=== PATIENT | female | born 1940 | race Caucasian/White ===

== ENCOUNTER 2022-06-21 02:21 | Emergency (ER) | payer MEDICARE, SELFPAY ==
[2022-06-21] VITALS (8 sets, daily range): BP systolic 139–169; BP diastolic 77–87; PULSE 67–75; RESP 18; TEMP 36.8; O2SAT 96–99; BMI 17.6
--- NOTE | 2022-06-21 02:34 | ED_ITS ---
HPI - General Adult General Time Seen by Provider: 02:36 Date Seen: 06/21/22 Chief complaint: Headache/Migraine Stated complaint: Head hurt, upset stomach Time Seen by Provider: 06/21/22 02:29 Source: patient and family Mode of arrival: ambulatory Limitations: no limitations History of Present Illness HPI narrative: 81-year-old female who comes in today complaining of headache as well as nausea and vomiting. Headache for the last 4 days, left-sided shooting pain. Waxes and wanes and has been well controlled with Tylenol until overnight tonight. She denies chest pain, runny nose, sinus congestion, head injury, sore throat, vision changes. She has had nausea vomiting for the last 2 days. She saw her primary care provider for this and was diagnosed with trigeminal neuralgia, started on carbamazepine and leflunomide. Denies abdominal pain and diarrhea. Says she has been able to eat or drink for 2 days. Related Data Home Medications Medication Instructions Recorded Confirmed Tylenol 06/21/22 amlodipine 2.5 mg tablet mg 06/21/22 carbamazepine 200 mg tablet mg 06/21/22 leflunomide 10 mg tablet mg 06/21/22 levothyroxine 50 mcg tablet mcg 06/21/22 Previous Rx's Medication Instructions Recorded ondansetron 4 mg disintegrating 4 mg PO Q6H PRN nausea and 06/21/22 tablet vomiting #30 tabs oxcarbazepine 150 mg tablet 150 mg PO BID #60 tabs 06/21/22 Allergies Allergy/AdvReac Type Severity Reaction Status Date / Time No Known Drug Allergies Allergy Verified 06/21/22 02:35 Review of Systems Status of ROS: Reports: 10 or more systems reviewed and unremarkable except as noted in History and below [facility] Social History Smoking Status: Never smoker How often do you have a drink containing alcohol: never AUDIT-C Alcohol total score: 0 Non-prescribed substance use: denies use Exam Const: Vital Signs, click to edit/add: Vital Signs - 24 hr 06/21/22 02:35 06/21/22 06:15 06/21/22 03:08 Temperature 98.3 F 98.3 F Pulse Rate [Left P ulse Oximeter] 73 73 69 Respiratory Rate 18 18 18 Blood Pressure [Ri ght Upper Arm] 169/87 H 169/87 H 168/83 H Pulse Oximetry 98 98 99 Oxygen Delivery Me thod Room Air Room Air Room Air 06/21/22 03:30 06/21/22 04:00 06/21/22 04:30 Temperature Pulse Rate [Left P ulse Oximeter] 67 70 71 Respiratory Rate 18 18 18 Blood Pressure [Ri ght Upper Arm] 156/81 H 151/81 H 156/77 H Pulse Oximetry 98 98 97 Oxygen Delivery Me thod Room Air Room Air Room Air 06/21/22 05:00 06/21/22 05:30 Temperature Pulse Rate [Left P ulse Oximeter] 75 73 Respiratory Rate 18 18 Blood Pressure [Ri ght Upper Arm] 154/85 H 139/80 Pulse Oximetry 96 96 Oxygen Delivery Me thod Room Air Room Air Documenting provider has reviewed patient's vital signs: yes Common normals: no apparent distress, oriented x3, alert and well nourished HENMT: Common normals: normocephalic, head/scalp atraumatic, external ears normal and external nose normal Head and scalp: normocephalic and atraumatic Nose: external nose normal External ear: external ears normal Eye: Common normals: PERRL and conjunctivae normal Conjunctiva: conjunctiva(e) normal Pupil: PERRL Neck & C-Spine: Common normals: full ROM, no lymphadenopathy and supple Chest: Common normals: palpation of chest normal Resp: Common normals: normal respiratory effort and clear to auscultation bilaterally Auscultation: clear to auscultation bilaterally Cardio: Common normals: regular rate, regular rhythm and no murmurs Rate: regular rate Rhythm: regular rhythm GI: Common normals: Normal to inspection, nondistended, normoactive bowel sounds present, soft to palpation and non-tender Palpation: soft : Common normals: no CVA tenderness Bladder/kidney exam: no CVA tenderness Back & Pelvis: Common normals: no CVA tenderness and thoracic and lumbar spine normal to inspection Extremity: Common normals: normal to inspection, full ROM and no pedal edema Neuro: Common normals: oriented x3, CN's II-XII intact bilaterally and no focal motor deficits Sensorium/orientation: alert Psych: Common normals: mental status grossly normal Skin: Common normals: no rashes or lesions noted General skin exam: no rashes or lesions noted Course Course Hospital Course: Patient seen examined, prior records reviewed. Differential diagnosis includes but not limited to intracranial hemorrhage, intracranial mass, trigeminal neuralgia, COVID infection, electrolyte disturbance, kidney injury. Patient presents with left-sided headache along with nausea and vomiting. Vitals stable on exam, neurologically intact. No history of head injury, no history of prior similar headaches. Head CT is ordered along with labs due to reported inability to tolerate oral intake for the last 2 days. Fluids, Toradol, Zofran, and Decadron ordered for symptom management. No temporal tenderness to suggest temporal arteritis. Reevaluation(s) Reevaluation #1: Labs reassuring, CT scan is negative. Symptoms improved after medications but still little nausea and still some mild headache. Additional Zofran and Dilaudid are ordered and plan for discharge. Time: 03:44 Reevaluation #2: Headache is improved after Dilaudid, patient is having more vomiting however. Abdomen reexamined, no tenderness or distention. Compazine and Benadryl are ordered to help with symptom management. Initial nausea vomiting started a couple days after starting carbamazepine and certainly could be related to intolerance for this. We discussed switching to oxcarbazepine for better GI tolerance. Time: 05:39 Reevaluation #3: Patient is feeling better and stable for discharge. Zofran prescription sent to pharmacy. Vital Signs Vital signs: Initial Vital Signs Temperature 98.3 F 06/21/22 02:35 Temperature Source Temporal Artery Scan 06/21/22 02:35 Pulse Rate 73 06/21/22 02:35 Respiratory Rate 18 06/21/22 02:35 Blood Pressure 169/87 H 06/21/22 02:35 Blood Pressure Mean 114 06/21/22 02:35 Blood Pressure Position Supine 06/21/22 02:35 Pulse Oximetry 98 06/21/22 02:35 Oxygen Delivery Method 06/21/22 02:35 Vital Signs Temperature 98.3 F 06/21/22 02:35 Pulse Rate 73 06/21/22 02:35 Respiratory Rate 18 06/21/22 02:35 Blood Pressure 169/87 H 06/21/22 02:35 Pulse Oximetry 98 06/21/22 02:35 Oxygen Delivery Method 06/21/22 02:35 Temperature 98.3 F 06/21/22 06:15 Pulse Rate 73 06/21/22 06:15 Respiratory Rate 18 06/21/22 06:15 Blood Pressure 169/87 H 06/21/22 06:15 Pulse Oximetry 98 06/21/22 06:15 Oxygen Delivery Method 06/21/22 06:15 Medical Decision Making Medical Records Medical records reviewed: Yes I reviewed the patient's medical records Lab Data Lab results reviewed: Yes I reviewed the patient's lab results Labs: Lab Results 06/21/22 06/21/22 06/21/22 Range/Units 02:28 02:36 02:45 Sodium 133 L (135-149) mmol/L Potassium 3.6 (3.6-5.1) mmol/L Chloride 97 (96-114) mmol/L Carbon Dioxide 28 (20-32) mmol/L BUN 20 (7-30) mg/dL Creatinine 0.8 (0.5-1.5) mg/dL Estimated Creat Clear 32.35 Estimated GFR 73 ml/min Glucose 103 (60-115) mg/dL Calcium 8.5 (8.4-10.6) mg/dL SARS-CoV-2 (PCR) Cancelled Negative SARS-CoV-2 Influenza Type A (PCR) Negative PCR FLU A (Negative) Influenza Type B (PCR) Negative PCR FLU B (Negative) Imaging Data CT scan - head: Attestation: I have reviewed the pertinent imaging results. My impression: negative Radiologist's impression: Negative Discharge Plan Discharge Clinical Impression: Headache Patient Disposition: Home, Self-Care Condition: Improved Instructions: Acute Headache (DC) Additional Instructions: Your nausea and vomiting today may be related to the carbamazepine it was started this week. You may continue at the twice a day dose that your taking, or you may stop this and switch to oxcarbazepine which is better tolerated by some patients. A prescription has been sent to your pharmacy. Do not take both of these medications at the same time. Activity Level: No Restrictions Discharge Diet: Regular Prescriptions: New ondansetron 4 mg tablet,disintegrating 4 mg PO Q6H PRN (Reason: nausea and vomiting) Qty: 30 0RF oxcarbazepine 150 mg tablet 150 mg PO BID Qty: 60 2RF Rx Instructions: Start with 1 tablet twice a day, after 3 days you can increase to 2 tablets twice a day. If your tolerating that dose and still having headache, after 3 more days you can increase to 3 tablets twice a day. No Action leflunomide 10 mg tablet Label Comments: TAKE 1 TABLET BY MOUTH EVERY DAY amlodipine 2.5 mg tablet Label Comments: TAKE ONE TABLET BY MOUTH ONCE DAILY carbamazepine 200 mg tablet Label Comments: TAKE 1 TABLET (200 MG) BY MOUTH IN THE MORNING AND 1 TABLET (200 MG) IN THE EVENING. levothyroxine 50 mcg tablet Label Comments: TAKE ONE TABLET BY MOUTH DAILY Tylenol Follow Up/Referrals: Nikki Liz MD [Primary Care Provider] - [facility]
--- NOTE | 2022-06-21 02:40 | CRLHL7_ITS ---
For Patients: As a result of the Century Cures Act, medical imaging exams and procedure reports are released immediately into your electronic medical record. You may view this report before your referring provider. If you have questions, please contact your health care provider. INDICATION: Migraine TECHNIQUE: CT Head without i.v. contrast. Coronal and sagittal reformats were obtained. COMPARISON: None FINDINGS: CSF space: Unremarkable for age. Brain: No evidence of mass, acute infarction or hemorrhage is seen. No mass-effect or midline shift is seen. Mild diffuse cortical atrophy is noted. The brain parenchyma is otherwise normal in appearance with preservation of the conway-white matter junction. Calvarium: There is a soft tissue structure with scattered calcifications partially visualized within the right sphenoid sinus with associated osteitis. The mastoid air cells are clear. The visualized orbits are grossly unremarkable. The calvarium is unremarkable in appearance with no fractures identified. IMPRESSIONS: 1. No evidence of acute infarction, intracranial hemorrhage, or mass-effect seen. 2. There is a soft tissue structure with scattered calcifications partially visualized within the right sphenoid sinus with associated osteitis. Assessment with outpatient CT sinus is recommended. Dictated by Christopher Juarez MD @ 06/21/2022 3:21:26 AM Please note that all CT scans at this facility use dose modulation, iterative reconstruction, and/or weight-based dosing when appropriate to reduce radiation dose to as low as reasonably achievable. Dictated by: Christopher Juarez MD @ 06/21/2022 03:21:44 (Electronically Signed)
[2022-06-21] MEDS: ONDANSETRON 2 MG/ML inj 4 MG IVP ×2 (02:51→04:22)
[2022-06-21] MEDS: 0.9 % SODIUM CHLORIDE 1000 ml 1,000 ML IV (02:51)
[2022-06-21] MEDS: KETOROLAC 15 MG/ML inj IVP (02:53)
[2022-06-21] MEDS: dexAMETHasone 4 MG/ML VIAL 6 MG IV (02:57)
[2022-06-21 03:12] LABS: Chloride* 97 mmol/L (96-114); Potassium* 3.6 mmol/L (3.6-5.1); Sodium* 133 mmol/L (135-149)
[2022-06-21 03:14] LABS: PCR FLU A Negative PCR FLU A (Negative); PCR FLU B Negative PCR FLU B (Negative); SARS PCR* Negative SARS-CoV-2 (Negative)
[2022-06-21 03:15] LABS: Blood Urea Nitrogen* 20 mg/dL (7-30); Carbon Dioxide* 28 mmol/L (20-32); Creatinine* 0.8 mg/dL (0.5-1.5); Est. Creatinine Clearance* 32.35; Estimated Glomerular Filt Rate 73 ml/min
[2022-06-21 03:16] LABS: Calcium* 8.5 mg/dL (8.4-10.6); Glucose* 103 mg/dL (60-115)
[2022-06-21] MEDS: HYDROmorphone 0.5 mg/0.5 ml inj 0.3 MG IVP (04:22)
[2022-06-21] MEDS: PROCHLORPERAZINE 5 MG/ML VIAL IV (05:47)
[2022-06-21] MEDS: diphenhydrAMINE 50 MG/ML inj 12.5 MG IVP (05:47)
== END 2022-06-21 06:45 | disposition home or self-care (01) ==
PROVIDERS: Emergency Provider Family Medicine; PCP Family Medicine
DX: R51.9 Headache, unspecified (principal)
CPT/HCPCS: 36415; 70450; 80048; 87502; 87635; 96361; 96374; 96375; 96376; 99284; J0780; J1100; J1170; J1200; J1885; J2405; J7030

== ENCOUNTER 2022-06-25 08:02 | Emergency (ER) | payer MEDICARE, SELFPAY ==
[2022-06-25 08:07] VITALS: BP 165/82; PULSE 85; RESP 16; TEMP 35.7; O2SAT 99; BMI 17.6
--- NOTE | 2022-06-25 08:46 | ED_ITS ---
HPI - General Adult General Time Seen by Provider: 08:46 Date Seen: 06/25/22 Chief complaint: Headache/Migraine Stated complaint: headache/nausea/unable to eat for 2 days Time Seen by Provider: 06/25/22 08:41 Source: patient and RN notes reviewed Mode of arrival: ambulatory Limitations: no limitations History of Present Illness HPI narrative: This 81-year-old female is coming in an with the stated diagnosis of trigeminal neuralgia, ongoing headache with paroxysm is a pain and severe nausea. She was on carbamazepine of initially and had presumed nausea vomiting from that. She was switched to oxcarbazepine a few days ago when she was in the ER, did have a head CT which was negative. She is not eating or drinking per her . The trigeminal neuralgia was diagnosed roughly 2-3 weeks ago in clinic. She also states she has fibromyalgia and was diagnosed with rheumatoid arthritis in March of this year. She states she was fine up until then. Her rheumatoid arthritis is doing better. She has had her left knee drained and injected twice. She does follow with rheumatology. She has had no fevers. She is starting to get some symptoms on the right side of her head. She points to the left occiput and the right occiput. She is getting pain generalized in forehead, into the head and getting overall headache in the front. She also gets sharp shooting pains. They have a lancinating character and I watched her 2 or 3 different times just talking to her where she got a Zinger type pain going to her left head. No visual changes, no otherwise noted neurologic changes. No fevers or chills noted. Eating does not trigger symptoms. She states she cannot eat due to the nausea. She has tried ice in the past and it made it worse. Reviewed with her that the literature suggests moist heat, we will try that for her here. She last used Tylenol around 3:00 a.m., is due for ibuprofen and would like some. She has been alternating Tylenol and ibuprofen as well as trying other meds outlined. She states that she cannot even lay on the back of her head anymore as it is becoming so painful and she feels it is stimulating these zinging pains. Related Data Home Medications Medication Instructions Recorded Confirmed Tylenol 06/21/22 amlodipine 2.5 mg tablet 2.5 mg 06/21/22 carbamazepine 200 mg tablet mg 06/21/22 leflunomide 10 mg tablet 10 mg 06/21/22 levothyroxine 50 mcg tablet 50 mcg 06/21/22 Previous Rx's Medication Instructions Recorded ondansetron 4 mg disintegrating 4 mg PO Q6H PRN nausea and 06/21/22 tablet vomiting #30 tabs oxcarbazepine 150 mg tablet 150 mg PO BID #60 tabs 06/21/22 prednisone 20 mg tablet 20 mg PO BID #14 tabs 06/25/22 prochlorperazine maleate 5 mg 5 mg PO TID PRN #30 tabs 06/25/22 tablet (Compazine) Allergies Allergy/AdvReac Type Severity Reaction Status Date / Time iodine Allergy Mild violentlly Verified 06/25/22 08:18 ill to stomach Review of Systems Status of ROS: Reports: 10 or more systems reviewed and unremarkable except as noted in History and below [facility] Medical History (Updated 06/25/22 @ 13:58 by Josselin Jackson MD) Rheumatoid arteritis Trigeminal nerve disorder, unspecified Social History Smoking Status: Never smoker Do you use any of these nicotine containing products: None Second hand tobacco smoke exposure: No How often do you have a drink containing alcohol: never How often do you have six or more drinks on one occasion: Never AUDIT-C Alcohol total score: 0 Non-prescribed substance use: denies use Exam Const: Vital Signs, click to edit/add: Vital Signs - 24 hr 06/25/22 08:07 Temperature 96.2 F L Pulse Rate [Right Pulse Oximeter] 85 Respiratory Rate 16 Blood Pressure [Ri ght Upper Arm] 165/82 H Pulse Oximetry 99 Oxygen Delivery Me thod Room Air Documenting provider has reviewed patient's vital signs: yes Common normals: oriented x3, no limitations, healthy appearing, alert and well nourished General appearance: cooperative, well kempt, in distress (Intermittent significant pain, grabbing at her left head) and frail appearing Nutritional appearance: thin HENMT: Common normals: normocephalic, head/scalp atraumatic, hearing grossly normal bilaterally, external ears normal, EAC's normal, TM's normal bilaterally, external nose normal, nasal mucous membranes and turbinates normal, moist oral mucous membranes, oropharynx normal, dentition normal and gingiva normal Head and scalp: normocephalic and atraumatic Nose: external nose normal and nasal mucous membranes and turbinates normal External ear: external ears normal External auditory canal: EAC's normal Tympanic membrane: TM's normal bilaterally Eye: Common normals: PERRL, EOMs intact bilaterally, conjunctivae normal and no scleral icterus Conjunctiva: conjunctiva(e) normal Pupil: PERRL Neck & C-Spine: Common normals: full ROM, no lymphadenopathy, supple, no meningeal signs, no JVD and thyroid normal Thyroid: thyroid normal Resp: Common normals: normal respiratory effort, no retractions, no use of accessory muscles and clear to auscultation bilaterally Auscultation: clear to auscultation bilaterally Cardio: Common normals: no JVD, regular rate, regular rhythm, S1 normal heart sound, S2 normal heart sound, no gallops, no clicks and no murmurs Rate: regular rate Rhythm: regular rhythm Heart sounds: S1 normal and S2 normal GI: Common normals: Normal to inspection, nondistended, normoactive bowel sounds present, soft to palpation, non-tender, no hepatosplenomegaly, no masses and no bruits Palpation: soft and no hepatosplenomegaly Extremity: Common normals: normal to inspection, full ROM, normal capillary refill, no joint enlargement, no clubbing, cyanosis or edema, no calf tenderness and no pedal edema Neuro: Common normals: oriented x3, CN's II-XII intact bilaterally, moves all extremities, no focal motor deficits, no sensory deficits noted and gait normal Sensorium/orientation: alert Meningeal signs: no meningeal signs Speech: speech normal Psych: Appearance: well kempt Course Course Hospital Course: Will establish an IV, give her L of normal saline and 4 mg IV Zofran. I will get some baseline labs. Have discussed with her trying an occipital nerve block, did go over risks benefits and side effects. She understands that may or may not work. It may help provide relief. They can be considered both diagnostic and therapeutic. Reevaluation(s) Reevaluation #1: Patient actually is feeling better. Since she has completed the trigger point injection along the left occiput, she has only had 1 sharp pain. The headache overall is improved. Her nausea did improve with use of the Compazine. Rather than initiating gabapentin, I think lets just have her do the prednisone. She did improve on that before and does not have ill effects of nausea. She and her are in agreement. Since starting the antiseizure medicines, she is had significant nausea that absolutely worsens after taking the medicine. She has also had a metallic taste in her mouth since starting it. We reviewed that hopefully the symptoms will start to improve over the next week. It could be less than a week or could take a little longer. They have a follow-up appointment with her Primary on this which they are to keep. We have reviewed that her CT of her sinuses is showing chronic changes, this does not contribute to her current situation from what I can see. Time: 13:52 Consultations Consultation #1: Just got off the phone with patient's primary care provider Dr. Liz, she had actually called me to talk regarding this patient. She was worried about this calcified lesion seen in the patient's right sinus. We did review that patient's symptoms really are primarily on the left and she is having no right- sided sinus symptoms. She did ask if I would consider doing this is sinus CT just to ensure that there was no complicating component with that. I did agree to do so. We also discussed maybe initiating gabapentin 100 mg nightly. Brianna ent's Arava was started by rheumatology and Dr. Liz does wonder if it could be a contributing factor. She has spoken with the chair car attendant however and they do not feel that this is contributing. I reviewed with her that I was going to attempt an injection over the left occiput for diagnostic and therapeutic considerations. She also requested that I initiate a longer steroid taper. She asked that we consider hospitalization if patient is not improving with these treatments, did review with her that hospitalization is extremely difficult right now as beds are significantly hard to find. Time: 09:36 Vital Signs Vital signs: Initial Vital Signs Temperature 96.2 F L 06/25/22 08:07 Temperature Source Temporal Artery Scan 06/25/22 08:07 Pulse Rate 85 06/25/22 08:07 Pulse Rhythm 06/25/22 08:07 Respiratory Rate 16 06/25/22 08:07 Blood Pressure 165/82 H 06/25/22 08:07 Blood Pressure Mean 109 06/25/22 08:07 Blood Pressure Position Sitting 06/25/22 08:07 Pulse Oximetry 99 08/23/22 08:07 Oxygen Delivery Method 06/25/22 08:07 Vital Signs Temperature 96.2 F L 06/25/22 08:07 Pulse Rate 85 06/25/22 08:07 Respiratory Rate 16 06/25/22 08:07 Blood Pressure 165/82 H 06/25/22 08:07 Pulse Oximetry 99 06/25/22 08:07 Oxygen Delivery Method 06/25/22 08:07 Temperature 96.2 F L 06/25/22 08:07 Pulse Rate 85 06/25/22 08:07 Respiratory Rate 16 06/25/22 08:07 Blood Pressure 165/82 H 06/25/22 08:07 Pulse Oximetry 99 06/25/22 08:07 Oxygen Delivery Method 06/25/22 08:07 Medical Decision Making Lab Data Lab results reviewed: Yes I reviewed the patient's lab results Labs: Lab Results 06/25/22 06/25/22 06/25/22 Range/Units 09:30 09:30 10:24 WBC 6.52 (4.50-11.00) K/uL RBC 4.75 (4.00-5.20) m/uL Hgb 13.9 (12.0-16.0) gm/dL Hct 42.0 (33.0-51.0) % MCV 88 (80-100) fL MCH 29 (26-34) pg MCHC 33 (32-36) gm/dL RDW Coeff of Tono 15.0 (11.5-15.5) % Plt Count 246 (140-440) K/uL Neut % (Auto) 79.0 H (42.0-72.0) % Lymph % (Auto) 10.1 L (20-44) % Thayer % (Auto) 9.5 (0.0-11.0) % Eos % (Auto) 0.9 (0.0-7.0) % Baso % (Auto) 0.3 (0.0-3.0) % Neut # (Auto) 5.20 (1.7-7.0) K/uL Lymph # (Auto) 0.70 L (0.90-2.90) K/uL Thayer # (Auto) 0.60 (0.00-0.90) K/UL Eos # (Auto) 0.06 (0.00-0.50) K/uL Baso # (Auto) 0.02 (0.00-0.30) K/uL Abs Immat Gran (auto) 0.01 (0.00-0.30) K/uL ESR 28 H (2-20) mm/hr Sodium 136 (135-149) mmol/L Potassium 3.4 L (3.6-5.1) mmol/L Chloride 98 (96-114) mmol/L Carbon Dioxide 28 (20-32) mmol/L BUN 15 (7-30) mg/dL Creatinine 0.7 (0.5-1.5) mg/dL Estimated Creat Clear 32.35 Estimated GFR 86 ml/min Glucose 89 (60-115) mg/dL Calcium 8.5 (8.4-10.6) mg/dL Total Bilirubin 0.7 (0.1-1.5) mg/dL AST 29 (12-35) U/L ALT 26 (4-35) U/L Alkaline Phosphatase 64 (40-150) U/L C-Reactive Protein 5.0 H (0.5-1.0) mg/dL Total Protein 7.3 (6.0-8.3) g/dL Albumin 3.8 (3.3-5.0) g/dL Imaging Data CT- Other: Attestation: I have reviewed the pertinent imaging results. Radiologist's impression: INDICATION: HEADACHE, NAUSEA, VOMITING TECHNIQUE: CT sinus without contrast. COMPARISON: CT head June 21, 2022. FINDINGS: Paranasal sinuses: Severe mucosal sinus thickening and mucosal retention cyst within the right maxillary sinus. There is scattered calcifications within the paranasal thickening as well as chronic periosteal thickening of the maxillary sinus wall. The other paranasal sinuses are predominantly clear. No air-fluid level is seen. The right ostiomeatal unit is partially opacified but patent. Patent left ostiomeatal unit. The fovea ethmoidalis and orbital moreno are intact. The nasal septum is slightly deviated to the right. The nasal turbinates are normal. Orbits and globes: Unremarkable. Visualized intracranial contents: Unremarkable.? Soft tissues: Small hypodense left frontal cystic structure likely epidermoid cyst or sebaceous cyst.. IMPRESSION: Chronic near-complete opacification of the right maxillary sinus with periosteal thickening in the maxillary sinus wall. There is intra sinus scattered calcifications likely related to intubated secretions and/or chronic fungal colonization. The right ostiomeatal unit is partially opacified but patent. No air-fluid level to suggest acute sinusitis. The additional paranasal sinuses are predominantly clear. Please note that all CT scans at this facility use dose modulation, iterative reconstruction, and/or weight-based dosing when appropriate to reduce radiation dose to as low as reasonably achievable. Dictated by Yoshi Zamarripa MD @ 06/25/2022 11:07:55 AM (Electronically Signed) Critical Care Time Critical Care Time Critical Care Time: No Discharge Plan Discharge Clinical Impression: Occipital neuralgia, Headache, Drug-induced nausea and vomiting Condition: Stable Instructions: Trigeminal Neuralgia (ED), Acute Headache (ED) Additional Instructions: Do not take the carbamazepine or the oxcarbazepine. We will have you start prednisone, take as prescribed and take with food. You can try Compazine for nausea control. You do need to try to increase your fluid intake and advance your diet back to some regular food. Eat food that is palatable for you. Keep your follow-up appointment in clinic this coming . Should you have worsening of symptoms, develop further issues or concerns, you can always seek re-evaluation here. Would recommend neurology referral for your current issues, talk to your primary care provider regarding this. Try heat to the back of your head, not ice. Handout is given on trigeminal neuralgia as we do not have a specific handout on occipital neuralgia. There are similar conditions in the fact that they are nerve problems with pain. Activity Level: Activity as Tolerated Prescriptions: New prednisone 20 mg tablet 20 mg PO BID Qty: 14 0RF prochlorperazine maleate [Compazine] 5 mg tablet 5 mg PO TID PRNQty: 30 0RF No Action leflunomide 10 mg tablet 10 mg Label Comments: TAKE 1 TABLET BY MOUTH EVERY DAY amlodipine 2.5 mg tablet 2.5 mg Label Comments: TAKE ONE TABLET BY MOUTH ONCE DAILY carbamazepine 200 mg tablet Label Comments: TAKE 1 TABLET (200 MG) BY MOUTH IN THE MORNING AND 1 TABLET (200 MG) IN THE EVENING. levothyroxine 50 mcg tablet 50 mcg Label Comments: TAKE ONE TABLET BY MOUTH DAILY Tylenol ondansetron 4 mg tablet,disintegrating 4 mg PO Q6H PRN (Reason: nausea and vomiting) Qty: 30 0RF oxcarbazepine 150 mg tablet 150 mg PO BID Qty: 60 2RF Rx Instructions: Start with 1 tablet twice a day, after 3 days you can increase to 2 tablets twice a day. If your tolerating that dose and still having headache, after 3 more days you can increase to 3 tablets twice a day. Follow Up/Referrals: Nikki Liz MD [Primary Care Provider] - Stand Alone Forms: [facility] Info Instructions Procedures Additional Procedures Procedure name: Trigger point injection, left occipital area Pre procedure diagnosis: Left occipital pain, probable occipital neuralgia Post procedure diagnosis: Same Site marking: not applicable Verification/time out: correct patient, correct site, correct procedure and time out performed Estimated blood loss (if any): none Conclusion: patient tolerated procedure Additional comments: Trigger point over the patient's left occipital area at point of maximal tenderness was done. I did do it in 2 steps. My initial 1 was at 9:55 a.m. with 3 mL of a total volume of 6 mL with 1% lidocaine (5 mL) and 4 mg dexamethasone (1 mL). She did get some initial relief. On my initial injection IA do note that they had good source of pain as I was able to palpate in trigger some of the lancinating pain along the left occipital area. We did subsequently found out in place the subsequent 3 mL just around 11:00 p.m.. Thus total volume infused was 6 mL. We will see how she does with this. There were no immediate complications and patient tolerated this well.
[2022-06-25] MEDS: ONDANSETRON 2 MG/ML inj 4 MG IVP (09:34)
--- NOTE | 2022-06-25 09:34 | CRLHL7_ITS ---
For Patients: As a result of the Century Cures Act, medical imaging exams and procedure reports are released immediately into your electronic medical record. You may view this report before your referring provider. If you have questions, please contact your health care provider. INDICATION: HEADACHE, NAUSEA, VOMITING TECHNIQUE: CT sinus without contrast. COMPARISON: CT head June 21, 2022. FINDINGS: Paranasal sinuses: Severe mucosal sinus thickening and mucosal retention cyst within the right maxillary sinus. There is scattered calcifications within the paranasal thickening as well as chronic periosteal thickening of the maxillary sinus wall. The other paranasal sinuses are predominantly clear. No air-fluid level is seen. The right ostiomeatal unit is partially opacified but patent. Patent left ostiomeatal unit. The fovea ethmoidalis and orbital moreno are intact. The nasal septum is slightly deviated to the right. The nasal turbinates are normal. Orbits and globes: Unremarkable. Visualized intracranial contents: Unremarkable. Soft tissues: Small hypodense left frontal cystic structure likely epidermoid cyst or sebaceous cyst.. IMPRESSION: Chronic near-complete opacification of the right maxillary sinus with periosteal thickening in the maxillary sinus wall. There is intra sinus scattered calcifications likely related to intubated secretions and/or chronic fungal colonization. The right ostiomeatal unit is partially opacified but patent. No air-fluid level to suggest acute sinusitis. The additional paranasal sinuses are predominantly clear. Please note that all CT scans at this facility use dose modulation, iterative reconstruction, and/or weight-based dosing when appropriate to reduce radiation dose to as low as reasonably achievable. Dictated by Yoshi Zamarripa MD @ 06/25/2022 11:07:55 AM (Electronically Signed)
[2022-06-25] MEDS: 0.9 % SODIUM CHLORIDE 1000 ml 1,000 ML 500 ML IV (09:35)
[2022-06-25 09:47] LABS: Basophils Absolute Auto 0.02 K/uL (0.00-0.30); Basophils Percent Auto 0.3 % (0.0-3.0); Eosinophils Absolute Auto 0.06 K/uL (0.00-0.50); Eosinophils Percent Auto 0.9 % (0.0-7.0); Hemoglobin* 13.9 gm/dL (12.0-16.0); Immature Granulocytes Abs Auto 0.01 K/uL (0.00-0.30); Lymphocytes Percent Auto 10.1 % (20-44); Mean Corpuscular HGB Conc 33 gm/dL (32-36); Mean Corpuscular Hemoglobin 29 pg (26-34); Mean Corpuscular Volume 88 fL (80-100); Monocytes Percent Auto 9.5 % (0.0-11.0); Platelet Count* 246 K/uL (140-440); Red Blood Count 4.75 m/uL (4.00-5.20); White Blood Count* 6.52 K/uL (4.50-11.00)
[2022-06-25] MEDS: IBUPROFEN 200 MG TABLET 600 MG PO (09:50)
[2022-06-25] MEDS: LIDOCAINE 1% 5 ml (pf) 5 ML VIAL INJECTION (09:50)
[2022-06-25] MEDS: dexAMETHasone 4 MG/ML VIAL IM (09:51)
[2022-06-25 10:06] LABS: Slide Review Reflex No
--- NOTE | 2022-06-25 10:53 | ED.NURSE ---
patient felt had some improvement with the injection into the neck that Dr. Frank did. patient is hungry given some crackers to eat and sipping on water.
[2022-06-25 10:57] LABS: Chloride* 98 mmol/L (96-114)
[2022-06-25 10:58] LABS: Albumin* 3.8 g/dL (3.3-5.0); Potassium* 3.4 mmol/L (3.6-5.1); Sodium* 136 mmol/L (135-149)
[2022-06-25 11:00] LABS: Creatinine* 0.7 mg/dL (0.5-1.5); Est. Creatinine Clearance* 32.35; Estimated Glomerular Filt Rate 86 ml/min
[2022-06-25 11:00] LABS: Erythrocyte SedimentationRate* 28 mm/hr (2-20)
[2022-06-25 11:01] LABS: Alanine Aminotransferase* 26 U/L (4-35); Alkaline Phosphatase* 64 U/L (40-150); Aspartate Amino Transferase* 29 U/L (12-35); Bilirubin Total* 0.7 mg/dL (0.1-1.5); Blood Urea Nitrogen* 15 mg/dL (7-30); Calcium* 8.5 mg/dL (8.4-10.6); Carbon Dioxide* 28 mmol/L (20-32); Glucose* 89 mg/dL (60-115); Total Protein* 7.3 g/dL (6.0-8.3)
[2022-06-25] MEDS: PROCHLORPERAZINE 10 MG TABLET 5 MG PO (12:36)
--- NOTE | 2022-06-25 13:51 | ED.NURSE ---
Dr. Frank is in talking with patient.
== END 2022-06-25 14:35 | disposition home or self-care (01) ==
PROVIDERS: Emergency Provider Family Medicine; PCP Family Medicine
DX: M54.81 Occipital neuralgia (principal); R51.9 Headache, unspecified; T50.905A Adverse effect of unspecified drugs, medicaments and biological substances, initial encounter
CPT/HCPCS: 36415; 70486; 80053; 85025; 85651; 86140; 96372; 96374; 96375; 99284; 99285; A9270; J1100; J2405; J7030

== ENCOUNTER 2022-09-15 08:51 | Outpatient (CLI) | payer MEDICARE, SELFPAY | END 2022-09-15 08:52 | disposition home or self-care (01) | LOC: AMB 10-11 03:14 | PROVIDERS: PCP Family Medicine; Visit Provider Emergency Medicine Emergency Medical Services | DX: R55 Syncope and collapse (principal); S09.90XA Unspecified injury of head, initial encounter; W17.89XA Other fall from one level to another, initial encounter; Y92.000 Kitchen of unspecified non-institutional (private) residence as the place of occurrence of the external cause | CPT/HCPCS: A0425; A0427 ==

== ENCOUNTER 2022-09-15 09:17 | Emergency (ER) | payer MEDICARE, SELFPAY ==
[2022-09-15] VITALS (13 sets, daily range): BP systolic 133–158; BP diastolic 69–78; PULSE 63–69; RESP 16; TEMP 36.7; O2SAT 96–98; BMI 18.1
--- NOTE | 2022-09-15 09:22 | CRLHL7_ITS ---
For Patients: As a result of the Century Cures Act, medical imaging exams and procedure reports are released immediately into your electronic medical record. You may view this report before your referring provider. If you have questions, please contact your health care provider. INDICATION: Fall. TECHNIQUE: CT head without IV contrast. Coronal and sagittal reformats. COMPARISON: Head CT 06/1922. FINDINGS: No intracranial hemorrhage, extra-axial collection, or evidence of acute cortical infarct. Age-appropriate ventricles and sulci. No mass effect or midline shift. The cranium and orbits are intact. Right maxillary sinus is near completely opacified with mixed density contents and bony hyperostosis. Left maxillary sinus demonstrates an air-fluid level. The mastoid air cells are clear. IMPRESSION: 1. No acute intracranial findings. 2. Right maxillary chronic sinusitis. 3. Left maxillary sinus nonspecific air-fluid level. Dictated by Young Doyle MD @ 09/15/2022 9:53:07 AM Please note that all CT scans at this facility use dose modulation, iterative reconstruction, and/or weight-based dosing when appropriate to reduce radiation dose to as low as reasonably achievable. Dictated by: Young Doyle MD @ 09/15/2022 09:53:12 (Electronically Signed)
--- NOTE | 2022-09-15 09:22 | CRLHL7_ITS ---
For Patients: As a result of the Cures Act, medical imaging exams and procedure reports are released immediately into your electronic medical record. You may view this report before your referring provider. If you have questions, please contact your health care provider. Indication: Fall Technique: Frontal AP pelvic radiograph Comparison: None available Findings: Diffuse demineralization. No dislocation or displaced fracture. Evaluation of the sacrum is partially obscured by overlying bowel contents. The hip joint spaces appear maintained bilaterally. The pubic symphysis and sacroiliac joints are intact. Impression: Diffuse demineralization without dislocation or displaced fracture. Dictated by Young Doyle MD @ 09/15/2022 9:54:15 AM Dictated by: Young Doyle MD @ 09/15/2022 09:54:21 (Electronically Signed)
--- NOTE | 2022-09-15 09:24 | ED.GENADULT ---
HPI - General Adult General Chief complaint: Fall/Minor Trauma Stated complaint: Fall Time Seen by Provider: 09/15/22 09:18 History of Present Illness HPI narrative: This 81-year-old female comes in by ambulance because of a fall with loss of consciousness at occurred at home prior to arrival here. She lives at home with her . She does not know what happened as she had loss of consciousness. She does have a linear laceration about 2 cm long on right parietal region of her scalp. She does not report any other injury except some discomfort in her sacrum region. She does not report a headache. She does not have any neurologic deficits. She is not on any anticoagulants. Related Data Home Medications Medication Instructions Recorded Confirmed Tylenol 06/21/22 amlodipine 2.5 mg tablet 2.5 mg PO 06/21/22 carbamazepine 200 mg tablet mg 06/21/22 leflunomide 10 mg tablet 10 mg 06/21/22 levothyroxine 50 mcg tablet 50 mcg PO 06/21/22 azathioprine 50 mg tablet mg 09/15/22 hydroxychloroquine 200 mg tablet mg PO 09/15/22 Previous Rx's Medication Instructions Recorded ondansetron 4 mg disintegrating 4 mg PO Q6H PRN nausea and 06/21/22 tablet vomiting #30 tabs oxcarbazepine 150 mg tablet 150 mg PO BID #60 tabs 06/21/22 prednisone 20 mg tablet 20 mg PO BID #14 tabs 06/25/22 prochlorperazine maleate 5 mg 5 mg PO TID PRN #30 tabs 06/25/22 tablet (Compazine) Allergies Allergy/AdvReac Type Severity Reaction Status Date / Time iodine Allergy Mild violentlly Verified 06/25/22 08:18 ill to stomach carbamazepine Allergy Verified 09/15/22 09:39 shellfish derived Allergy Verified 09/15/22 09:39 witch coleman Allergy Verified 09/15/22 09:39 Review of Systems Status of ROS: Reports: 10 or more systems reviewed and unremarkable except as noted in History and below Narrative: Constitutional: No fevers, no weight gain or loss. Eyes: No discharge. No vision changes. HENT: No congestion, no sore throat, no ear pain. Cardiovascular: No chest pain, no palpitations. Respiratory: No shortness of breath, no wheezes, no cough. Gastrointestinal: No abdominal pain, no vomiting, no diarrhea. Genitourinary: No dysuria, no hematuria. Musculoskeletal: Normal range of motion. Skin: No rashes, no pruritis. Neurological: No dizziness, weakness, sensory change, speech change. Endo/Heme/Allergies: No bruising or bleeding. No polydipsia. Pysch: no suicidality, no anxiety, no insomnia. All other systems reviewed and are negative. [facility] Medical History (Updated 09/15/22 @ 10:40 by Binh Schultz MD) Rheumatoid arteritis Trigeminal nerve disorder, unspecified Social History Smoking Status: Never smoker Do you use any of these nicotine containing products: None Second hand tobacco smoke exposure: No How often do you have a drink containing alcohol: never How often do you have six or more drinks on one occasion: Never AUDIT-C Alcohol total score: 0 Non-prescribed substance use: denies use service: No Exam Narrative: Exam Narrative: Primary Survey: Vital Signs are within normal limits. Airway: Open. Breathing: Easy. Circulation: no obvious bleeding; normal capillary refill. Disability: GCS is 15. Normal pupillary response and motor movements. Secondary Survey: Exposure: Head: 2 cm linear laceration in the right parietal scalp. Neck: No midline tenderness. ROM intact. Chest: Non tender. No external signs of trauma. Abdomen: Non tender. No rebound tenderness. Normal bowel sounds. Pelvis/Genitals: No tenderness to A/P and lateral stress. Tenderness when palpating at the sacrum. Extremities: Atraumatic. Back: No midline tenderness except for tenderness at the sacrum/coccyx. No sign of injury. Primary and Secondary surveys are completed. The patient's GCS is 15. Const: Vital Signs, click to edit/add: Vital Signs - 24 hr 09/15/22 09:29 09/15/22 09:48 09/15/22 09:49 Temperature 98.0 F Pulse Rate 64 64 Pulse Rate [Left P ulse Oximeter] 69 Respiratory Rate 16 Blood Pressure 158/78 H Blood Pressure [Ri ght Upper Arm] 144/71 H Pulse Oximetry 98 97 98 Oxygen Delivery Me thod Room Air 09/15/22 09:54 09/15/22 10:00 09/15/22 10:04 Temperature Pulse Rate 63 64 65 Pulse Rate [Left P ulse Oximeter] Respiratory Rate Blood Pressure 145/73 H 138/70 Blood Pressure [Ri ght Upper Arm] Pulse Oximetry 98 97 96 Oxygen Delivery Me thod 09/15/22 10:14 09/15/22 10:15 09/15/22 10:24 Temperature Pulse Rate 65 65 68 Pulse Rate [Left P ulse Oximeter] Respiratory Rate Blood Pressure 140/69 H 136/70 Blood Pressure [Ri ght Upper Arm] Pulse Oximetry 97 96 98 Oxygen Delivery Me thod 09/15/22 10:30 Temperature Pulse Rate 66 Pulse Rate [Left P ulse Oximeter] Respiratory Rate Blood Pressure Blood Pressure [Ri ght Upper Arm] Pulse Oximetry 96 Oxygen Delivery Me thod Course Vital Signs Vital signs: Initial Vital Signs Temperature 98.0 F 09/15/22 09:29 Temperature Source Temporal Artery Scan 09/15/22 09:29 Pulse Rate 69 09/15/22 09:29 Pulse Rhythm 09/15/22 09:29 Pulse Strength 3+ Normal 09/15/22 09:29 Respiratory Rate 16 09/15/22 09:29 Blood Pressure 144/71 H 09/15/22 09:29 Blood Pressure Mean 95 09/15/22 09:29 Blood Pressure Position Sitting 09/15/22 09:29 Pulse Oximetry 98 09/15/22 09:29 Oxygen Delivery Method 09/15/22 09:29 Vital Signs Temperature 98.0 F 09/15/22 09:29 Pulse Rate 69 09/15/22 09:29 Respiratory Rate 16 09/15/22 09:29 Blood Pressure 144/71 H 09/15/22 09:29 Pulse Oximetry 98 09/15/22 09:29 Oxygen Delivery Method 09/15/22 09:29 Temperature 98.0 F 09/15/22 09:29 Pulse Rate 66 09/15/22 10:30 Respiratory Rate 16 09/15/22 09:29 Blood Pressure 136/70 09/15/22 10:24 Pulse Oximetry 96 09/15/22 10:30 Oxygen Delivery Method 09/15/22 09:29 Medical Decision Making MDM Narrative Medical decision making narrative: This patient comes in for evaluation due to a fall that occurred at home. She had loss of consciousness and does not remember what precipitated the fall. Her was sitting at the kitchen table but did not see how this happened. He did note that she was laying on the floor next to the table but was unaware of what brought to that position. She is not reporting any symptoms of discomfort except some mild discomfort in her sacral region. X-ray of the pelvis appears normal. CT of the head also shows no sign of acute intracranial changes. Lab results also returned with normal findings. She has a 2 cm linear laceration on the right side of her scalp. This wound was cleansed and repaired with Dermabond. Instructions regarding wound care were given. The patient was able to get up and ambulate normally to the bathroom. She is okay to be discharged. Lab Data Labs: Lab Results 09/15/22 Range/Units 09:58 Sodium 133 L (135-149) mmol/L Potassium 3.6 (3.6-5.1) mmol/L Chloride 101 (96-114) mmol/L Carbon Dioxide 29 (20-32) mmol/L BUN 25 (7-30) mg/dL Creatinine 0.8 (0.5-1.5) mg/dL Estimated Creat Clear 29.30 Estimated GFR 73 ml/min Glucose 95 (60-115) mg/dL Calcium 8.3 L (8.4-10.6) mg/dL Imaging Data CT scan - head: Radiologist's impression: 1. No acute intracranial findings. 2. Right maxillary chronic sinusitis. 3. Left maxillary sinus nonspecific air-fluid level. XR Pelvis: Radiologist's impression: Diffuse demineralization without dislocation or displaced fracture. Discharge Plan Discharge Clinical Impression: Syncope, Laceration of scalp Patient Disposition: Home, Self-Care Condition: Stable Additional Instructions: Take afch-ggc-pfoyeko medications as needed and indicated. Follow up with MD or return if worsening. Prescriptions: No Action azathioprine 50 mg tablet Label Comments: TAKE ONE TABLET BY MOUTH DAILY hydroxychloroquine 200 mg tablet PO Label Comments: TAKE ONE TABLET BY MOUTH DAILY FOR 90 DAYS leflunomide 10 mg tablet 10 mg Label Comments: TAKE 1 TABLET BY MOUTH EVERY DAY amlodipine 2.5 mg tablet 2.5 mg PO Label Comments: TAKE ONE TABLET BY MOUTH ONCE DAILY carbamazepine 200 mg tablet Label Comments: TAKE 1 TABLET (200 MG) BY MOUTH IN THE MORNING AND 1 TABLET (200 MG) IN THE EVENING. levothyroxine 50 mcg tablet 50 mcg PO Label Comments: TAKE ONE TABLET BY MOUTH DAILY Tylenol ondansetron 4 mg tablet,disintegrating 4 mg PO Q6H PRN (Reason: nausea and vomiting) Qty: 30 0RF oxcarbazepine 150 mg tablet 150 mg PO BID Qty: 60 2RF Rx Instructions: Start with 1 tablet twice a day, after 3 days you can increase to 2 tablets twice a day. If your tolerating that dose and still having headache, after 3 more days you can increase to 3 tablets twice a day. prednisone 20 mg tablet 20 mg PO BID Qty: 14 0RF prochlorperazine maleate [Compazine] 5 mg tablet 5 mg PO TID PRNQty: 30 0RF Follow Up/Referrals: Nikki Liz MD [Primary Care Provider] - Stand Alone Forms: [employer] Info Instructions
[2022-09-15 10:04] LABS: Basophils Absolute Auto 0.03 K/uL (0.00-0.30); Basophils Percent Auto 0.4 % (0.0-3.0); Eosinophils Absolute Auto 0.04 K/uL (0.00-0.50); Eosinophils Percent Auto 0.6 % (0.0-7.0); Hematocrit 37.5 % (33.0-51.0); Hemoglobin* 12.5 gm/dL (12.0-16.0); Immature Granulocytes Abs Auto 0.01 K/uL (0.00-0.30); Immature Granulocytes Pct Auto 0.1 %; Lymphocytes Percent Auto 5.9 % (20-44); Mean Corpuscular HGB Conc 33 gm/dL (32-36); Mean Corpuscular Hemoglobin 31 pg (26-34); Mean Corpuscular Volume 93 fL (80-100); Monocytes Percent Auto 7.2 % (0.0-11.0); Neutrophils Percent Auto 85.8 % (42.0-72.0); Platelet Count* 147 K/uL (140-440); RDW Coefficient of Variation % 14.6 % (11.5-15.5); Red Blood Count 4.04 m/uL (4.00-5.20); White Blood Count* 7.23 K/uL (4.50-11.00)
[2022-09-15 10:22] LABS: Chloride* 101 mmol/L (96-114)
[2022-09-15 10:23] LABS: Potassium* 3.6 mmol/L (3.6-5.1); Sodium* 133 mmol/L (135-149)
[2022-09-15 10:25] LABS: Creatinine* 0.8 mg/dL (0.5-1.5); Estimated Glomerular Filt Rate 73 ml/min
[2022-09-15 10:26] LABS: Blood Urea Nitrogen* 25 mg/dL (7-30); Calcium* 8.3 mg/dL (8.4-10.6); Carbon Dioxide* 29 mmol/L (20-32); Glucose* 95 mg/dL (60-115)
[2022-09-15 11:13] LABS: Slide Review Reflex No
== END 2022-09-15 11:00 | disposition home or self-care (01) ==
PROVIDERS: Emergency Provider Emergency Medicine Emergency Medical Services; PCP Family Medicine
DX: S01.01XA Laceration without foreign body of scalp, initial encounter (principal); R55 Syncope and collapse; W19.XXXA Unspecified fall, initial encounter
CPT/HCPCS: 12001; 36415; 70450; 72170; 80048; 85025; 99284; 99285; 99291; G0390

== ENCOUNTER 2024-04-13 09:30 | Outpatient (RCR) | payer MEDICARE, SELFPAY ==
--- NOTE | 2023-09-26 10:50 | URNOTE ---
Addendum entered by Katie Staples RN 11/28/23 10:58: This auth has been short dated by [facility] as pt will be receiving elsewhere. new dates 10/03/2023-11/20/2023 Original Note: Request received for authorization for Orencia (J0129). Prior authorization is approved per [facility] Ref#[id number], Orencia 500mg administered for frequency of 4 weeks, approved for 14 visits from date range 10/03/2023 to 10/03/2024.
[2023-10-28 09:11] VITALS: BP 146/75; PULSE 83; RESP 16; TEMP 36.2; O2SAT 98
[2023-10-28 10:06] LABS: Basophils Absolute Auto 0.02 K/uL (0.00-0.30); Basophils Percent Auto 0.4 % (0.0-3.0); Eosinophils Absolute Auto 0.05 K/uL (0.00-0.50); Hematocrit 38.9 % (33.0-51.0); Hemoglobin* 12.8 gm/dL (12.0-16.0); Immature Granulocytes Abs Auto 0.01 K/uL (0.00-0.30); Immature Granulocytes Pct Auto 0.2 %; Lymphocytes Percent Auto 17.3 % (20-44); Mean Corpuscular HGB Conc 33 gm/dL (32-36); Mean Corpuscular Hemoglobin 31 pg (26-34); Mean Corpuscular Volume 94 fL (80-100); Monocytes Percent Auto 12.5 % (0.0-11.0); Neutrophils Percent Auto 68.6 % (42.0-72.0); Platelet Count* 228 K/uL (140-440); Red Blood Count 4.13 m/uL (4.00-5.20)
[2023-10-28 10:07] LABS: Slide Review Reflex No
[2023-10-28] MEDS: 0.9 % SODIUM CHLORIDE 250 ml IV (10:13)
[2023-10-28 10:26] LABS: Albumin* 4.1 g/dL (3.3-5.0)
[2023-10-28 10:28] LABS: Aspartate Amino Transferase* 25 U/L (12-35); Creatinine* 0.8 mg/dL (0.5-1.5); Estimated Glomerular Filt Rate 73 ml/min
[2023-10-28 10:29] LABS: Alanine Aminotransferase* 16 U/L (4-35); Calcium* 8.8 mg/dL (8.4-10.6)
[2023-10-28 10:32] LABS: C Reactive Protein* 0.9 mg/dL (0.5-1.0)
[2023-10-28 10:45] LABS: Vitamin D 25 Hydroxy* 45 ng/mL (30-80)
[2023-10-28 10:52] LABS: Erythrocyte SedimentationRate* 11 mm/hr (2-20)
--- NOTE | 2023-11-28 12:52 | PC.NURSE ---
Called pt to connect re: new orders for Actemra. Pt informed RN that she received her 1st dose of Actemra on 11/25/2023 at [facility]. Pt will be getting infusions every 4 weeks but will only be getting infusions in [place] every 8 weeks. She will do every other treatment here and the others in [place]. UR team and Ileana Norwood APRN updated. Cassia is scheduled at [facility] on 12/23/2023 for her next infusion. [facility] staff will need to call pt after insurance authorization obtained. [facility] will need to submit at UR request before each and every infusion. Will work with staff to come up with a plan for this.
--- NOTE | 2023-12-02 14:44 | URNOTE ---
Actemra (J3262) has been approved from 11/28/2023-05/28/2024. Auth #[id number]
[2023-12-23 13:42] VITALS: BP 129/77; PULSE 71; RESP 16; TEMP 36.6; O2SAT 98
[2023-12-23 14:15] LABS: Basophils Percent Auto 0.2 % (0.0-3.0); Eosinophils Percent Auto 1.9 % (0.0-7.0); Hematocrit 39.5 % (33.0-51.0); Hemoglobin* 13.3 gm/dL (12.0-16.0); Lymphocytes Percent Auto 19.2 % (20-44); Mean Corpuscular HGB Conc 34 gm/dL (32-36); Mean Corpuscular Hemoglobin 31 pg (26-34); Mean Corpuscular Volume 93 fL (80-100); Monocytes Percent Auto 14.6 % (0.0-11.0); Neutrophils Percent Auto 64.1 % (42.0-72.0); Platelet Count* 179 K/uL (140-440); RDW Coefficient of Variation % 13.8 % (11.5-15.5); Red Blood Count 4.23 m/uL (4.00-5.20); White Blood Count* 4.26 K/uL (4.50-11.00)
[2023-12-23] MEDS: ACETAMINOPHEN 500 MG TABLET 1000 MG PO (14:16)
[2023-12-23 14:21] LABS: Slide Review Reflex No
[2023-12-23 14:30] LABS: Albumin* 4.1 g/dL (3.3-5.0)
[2023-12-23] MEDS: diphenhydrAMINE 25 MG in 0.9 % SODIUM CHLORIDE 100 ml 100 ML 600 MG IVPB (14:31)
[2023-12-23] MEDS: METHYLPREDNISOLONE SOD SUCC 62.5 MG/ML (125) 80 MG IVP (14:32)
[2023-12-23 14:33] LABS: Alanine Aminotransferase* 17 U/L (4-35); Aspartate Amino Transferase* 26 U/L (12-35); Est. Creatinine Clearance* 35.12; Estimated Glomerular Filt Rate 56 ml/min
[2023-12-23 14:43] LABS: C Reactive Protein* < 0.5 mg/dL (0.5-1.0)
[2023-12-23] MEDS: TUBING SECONDARY IVPB (15:09)
[2023-12-23] MEDS: [UNRECOGNIZED DRUG - OTHER] IVPB (15:09)
[2023-12-23] MEDS: TOCILIZUMAB IVPB (15:09)
[2023-12-23 15:31] LABS: Erythrocyte SedimentationRate* 4 mm/hr (2-20)
--- NOTE | 2024-01-27 12:07 | URNOTE ---
Actemra (J3262) 200mg/10ml vial (for 7.000 NDC units= 1400mg) approved, Date Range: 01/23/2024 -07/25/2024. Auth #[id number]. Note pt receives dose at [facility] at 4 weeks, PA must be done for each visit here at [facility].
[2024-02-17 13:38] LABS: Hematocrit 39.8 % (33.0-51.0); Hemoglobin* 13.2 gm/dL (12.0-16.0); Mean Corpuscular HGB Conc 33 gm/dL (32-36); Mean Corpuscular Hemoglobin 32 pg (26-34); Mean Corpuscular Volume 96 fL (80-100); Platelet Count* 201 K/uL (140-440); Red Blood Count 4.13 m/uL (4.00-5.20)
[2024-02-17 13:42] LABS: Slide Review Reflex No
[2024-02-17 13:44] VITALS: BP 106/65; PULSE 66; RESP 16; TEMP 36.2; O2SAT 97
[2024-02-17 14:09] LABS: Est. Creatinine Clearance* 33.52; Estimated Glomerular Filt Rate 55 ml/min
[2024-02-17] MEDS: 0.9 % SODIUM CHLORIDE 250 ml IV (14:09)
[2024-02-17 14:10] LABS: Alanine Aminotransferase* 17 U/L (4-35); Aspartate Amino Transferase* 26 U/L (12-35)
[2024-02-17] MEDS: SODIUM CHLORIDE 0.9 % (FLUSH) 10 ML SYRINGE IVF (14:10)
[2024-02-17 14:17] LABS: C Reactive Protein* < 0.5 mg/dL (0.5-1.0)
[2024-02-17] MEDS: METHYLPREDNISOLONE SOD SUCC 62.5 MG/ML (125) 80 MG IVP (14:18)
[2024-02-17] MEDS: diphenhydrAMINE 25 MG in 0.9 % SODIUM CHLORIDE 100 ml 100 ML 420 MG IVPB (14:18)
[2024-02-17 14:53] LABS: Erythrocyte SedimentationRate* 2 mm/hr (2-20)
[2024-02-17] MEDS: TOCILIZUMAB IVPB (14:56)
[2024-02-17] MEDS: [UNRECOGNIZED DRUG - OTHER] IVPB (14:56)
[2024-02-17] MEDS: TUBING SECONDARY IVPB (14:56)
--- NOTE | 2024-02-17 16:20 | ONC.NURNOTE ---
Labs faxed to ordering provider.
--- NOTE | 2024-03-30 13:32 | URNOTE ---
Actemra (J3262) 200mg/10ml vial (for 7.000 NDC units= 1400mg) approved, Date Range: 01/23/2024 -07/25/2024. Auth #[id number]. Per RepAddie Irizarry (Ref#call is name, 03/23/2024) do not need to recreate PA as ref#above is approved, see date range.
[2024-04-13 09:44] VITALS: BP 137/73; PULSE 76; RESP 16; TEMP 36.8; O2SAT 99
[2024-04-13 10:03] LABS: Basophils Absolute Auto 0.03 K/uL (0.00-0.30); Basophils Percent Auto 0.5 % (0.0-3.0); Eosinophils Absolute Auto 0.22 K/uL (0.00-0.50); Eosinophils Percent Auto 3.7 % (0.0-7.0); Hematocrit 41.1 % (33.0-51.0); Hemoglobin* 13.5 gm/dL (12.0-16.0); Lymphocytes Percent Auto 16.4 % (20-44); Mean Corpuscular HGB Conc 33 gm/dL (32-36); Mean Corpuscular Hemoglobin 31 pg (26-34); Mean Corpuscular Volume 95 fL (80-100); Monocytes Percent Auto 11.6 % (0.0-11.0); Neutrophils Absolute Auto 3.98 K/uL (1.7-7.0); Neutrophils Percent Auto 67.8 % (42.0-72.0); Platelet Count* 198 K/uL (140-440); RDW Coefficient of Variation % 13.1 % (11.5-15.5); Red Blood Count 4.32 m/uL (4.00-5.20); White Blood Count* 5.87 K/uL (4.50-11.00)
[2024-04-13] MEDS: 0.9 % SODIUM CHLORIDE 250 ml IV (10:08)
[2024-04-13] MEDS: METHYLPREDNISOLONE SOD SUCC 62.5 MG/ML (125) 80 MG IVP (10:08)
[2024-04-13] MEDS: SODIUM CHLORIDE 0.9 % (FLUSH) 10 ML SYRINGE IVF (10:10)
[2024-04-13 10:13] LABS: Slide Review Reflex No
[2024-04-13] MEDS: diphenhydrAMINE 25 MG in 0.9 % SODIUM CHLORIDE 100 ml 100 ML 400 MG IVPB (10:25)
[2024-04-13 10:36] LABS: Albumin* 4.5 g/dL (3.3-5.0)
[2024-04-13 10:39] LABS: Alanine Aminotransferase* 16 U/L (4-35); Aspartate Amino Transferase* 50 U/L (12-35); Creatinine* 0.9 mg/dL (0.5-1.5); Est. Creatinine Clearance* 33.52; Estimated Glomerular Filt Rate 63 ml/min
[2024-04-13 10:47] LABS: C Reactive Protein* < 0.5 mg/dL (0.5-1.0)
[2024-04-13 10:56] LABS: Erythrocyte SedimentationRate* 3 mm/hr (2-20)
[2024-04-13] MEDS: TUBING SECONDARY IVPB (11:07)
[2024-04-13] MEDS: TOCILIZUMAB IVPB (11:07)
[2024-04-13] MEDS: [UNRECOGNIZED DRUG - OTHER] IVPB (11:07)
== END 2024-04-25 23:59 | disposition home or self-care (01) ==
LOC: CCIC 09:30
PROVIDERS: PCP Family Medicine; Referring Provider Family Medicine; Visit Provider Clinical Nurse Specialist
DX: M06.9 Rheumatoid arthritis, unspecified (principal); Z51.81 Encounter for therapeutic drug level monitoring
CPT/HCPCS: 36415; 82040; 82306; 82310; 82565; 84450; 84460; 85025; 85027; 85651; 86140; 96365; 96376; 96413; A9270; J0129; J1200; J2919; J2930; J3262; J7050

== ENCOUNTER 2024-10-05 10:30 | Outpatient (RCR) | payer MEDICARE, SELFPAY ==
--- NOTE | 2024-08-20 15:15 | PT.OPE ---
PT [place] Outpatient Eval PT [facility] Outpatient Eval Start: 08/20/24 12:55 Freq: Status: Active Protocol: Document 08/20/24 12:56 ENM (Rec: 08/20/24 15:10 ENM [id number]) E-signed By Randi Lassiter, DPT Physical Therapy Outpatient Evaluation Insurance Information Recert Due Date 11/18/24 Insurance Name Medicare B Medical Diagnosis pes anserine bursitis other bursitis of knee, unspecified knee Treating Diagnosis impaired gait, left knee pain, decreased knee ROM, decreased knee strength, Imaging Report Information xray: No acute displaced fracture or malalignment. Fetk-ug-okllmybt degenerative changes of the knee. Small knee joint effusion. show severe medial patellofemoral osteoarthrosis with pldr-vb-hfga joint space loss, subchondral sclerosis, and osteophyte formation. The medial tibial femoral compartment is mild to moderately narrowed, but the lateral compartment well preserved. Generalized osteopenia noted consistent with age. Subjective Subjective Patient present to PT for complaint of left knee pain. This pain started a few weeks ago. Does have a history for knee swelling on the right side due to her rheumatoid arthritis. Game Advisor did not think these pains were from her arthritis due to the location. Patient's theory is that the knee pain started after getting her COVID shot. At first she had pain in the back then ribs and now it is in her knee. The pain has steadily worsened. Sometimes it aches even with sitting. With getting up to walk the pain is terrible. Has started to use a cane because of the pain. Seems to be the worst right in the morning. She can fall asleep but when she wakes it is difficult to get back to sleep due to pain. Has tried to ice, elevate and use ibuprofen. Started to use a knee sleeve. When it started: a few weeks ago Describes it as: shooting sometimes, aching other times Timing: consistent Location: medial inferior knee Irritability: mod Severity: mod-severe Pain Comments at its best: ache at its worse: 1010 easing: ibuprofen aggravating: walking, standing for longer periods Current Work Status Retired Objective Other/Pertinent Objective Knee AROM L knee 0-0-95 with shooting pain after R knee 0-0-118 Hip AROM: Hip flexion: R WFL IR: R WFL ER: R 25% limited unable to assess on L due to pain Strength: Knee extensors: L 3+/5 with pain R 4/5 Knee flexors: 4/5 B no pain hip flexors: L 4-/5 slow to perform due to pain R 4-/5 Palpation/joint mobility: + for pain palpating medial joint line, distal hamstring, distal adductors and pes anserine area Gait/balance: Patient ambulates with SEC and antalgic gait pattern. Knee locked out into extension throughout gait cycle with minimal weight acceptance. Cane is not adjustable and too tall for patient Assessment Assessment/Impression Patient is an 83 year old female presenting with acute left knee pain. Symptoms started a few weeks ago without an injury. Xray found severe medial patellofemoral osteoarthrosis with bone-on- bone joint space loss, and mild-mod narrowing of medial tibial femoral compartment. Their primary complaint is of increasing significant knee pain with ambulation that has not improved. Patients pain were highly irritable with assessment. Concordant pains brought with ambulation, knee ROM and MMT. Tender to palpation along medial joint line, distal hamstring, adductor tendons and pes anserine. Gait is very antalgic with minimal weight acceptance using SEC. This does improve when using a 2WW with lessening pain. Patient was loaned a walker from the clinic. Cassia would greatly benefit from skilled PT to address impairments stated above in order to perform all functional mobility and household duties without significant discomfort or difficulty for return to PLOF. Primary Functional Limitations standing, walking, Plan of Care Rehabilitation Potential Good Rehabilitation Potential Comments fair-good Physical Therapy Goals In 8-10 visits: 1. Patient will be IND with HEP and self management of symptoms 2. Patient will display pain free knee ROM to WNL comparable to contralateral side for improved ease of transfers 3. Patient will be able to comfortably lay at night for improved sleep hygiene 4. Patient will be able to walk with LRAD and 4/10 or less knee pain to progress toward PLOF 5. Patient will be able to stand to perform household duties without difficulty or discomfort Coordination/Communication With Referral Source Treatment Plan/Direct Interventions Electrical Stimulation,Gait Training,Ice/Cold/ Vasopneumatic,Joint Mobilization,Manual Therapy, Neuromuscular Re-ed,Self-Care/ Home Management,Therapeutic Activities,Therapeutic Exercises Frequency/Duration 1x a week for 8 weeks, as needed for 3-4 visits Patient Will Be Discharged From Therapy Completion of LTG(s), Independent w/HEP Evaluation Billing Untimed Code Treatment Minutes 29 Complexity Moderate Certification Information Initial Certification Date 08/20/24 Ending Certification Date 11/18/24 Provider Signature Required Yes Provider Signature Shows Agreement With POC & Medical Necessity Physician NPI Number Write NPI# Here Physician Comment/Change : Physician Signature & Date Requested Please Sign/Date Here
== END 2024-11-29 15:32 | disposition home or self-care (01) ==
PROVIDERS: PCP Family Medicine; Visit Provider Orthopaedic Surgery Sports Medicine
DX: M70.52 Other bursitis of knee, left knee (principal); R26.9 Unspecified abnormalities of gait and mobility; M25.562 Pain in left knee; Z74.09 Other reduced mobility; R53.1 Weakness; Z51.89 Encounter for other specified aftercare
CPT/HCPCS: 97110; 97112; 97116; 97140; 97162

== ENCOUNTER 2024-12-02 09:00 | Outpatient (RCR) | payer MEDICARE, SELFPAY ==
--- NOTE | 2024-05-20 10:42 | URNOTE ---
Actemra (J3262) 200mg/10ml vial (for 7.000NDC units (used 2 as of 05/20/2024)= total 1400mg) approved, Date Range: 01/23/2024 -07/25/2024. Auth #[id number]. 05/19/2024 confirmed by [facility] Rep. Agnes Rodriguez, do not need to recreate PA as ref#above is approved, see date range/# doses.
[2024-06-08 13:39] LABS: Basophils Absolute Auto 0.02 K/uL (0.00-0.30); Basophils Percent Auto 0.3 % (0.0-3.0); Eosinophils Absolute Auto 0.04 K/uL (0.00-0.50); Eosinophils Percent Auto 0.7 % (0.0-7.0); Hematocrit 37.9 % (33.0-51.0); Hemoglobin* 12.5 gm/dL (12.0-16.0); Immature Granulocytes Abs Auto 0.01 K/uL (0.00-0.30); Immature Granulocytes Pct Auto 0.2 %; Lymphocytes Percent Auto 12.4 % (20-44); Mean Corpuscular HGB Conc 33 gm/dL (32-36); Mean Corpuscular Hemoglobin 31 pg (26-34); Mean Corpuscular Volume 95 fL (80-100); Monocytes Percent Auto 12.2 % (0.0-11.0); Neutrophils Percent Auto 74.2 % (42.0-72.0); Platelet Count* 238 K/uL (140-440); Red Blood Count 4.01 m/uL (4.00-5.20)
[2024-06-08 13:40] LABS: Slide Review Reflex No
[2024-06-08 13:52] LABS: Aspartate Amino Transferase* 28 U/L (12-35); Estimated Glomerular Filt Rate 55 ml/min
[2024-06-08 13:53] LABS: Alanine Aminotransferase* 11 U/L (4-35)
[2024-06-08] MEDS: METHYLPREDNISOLONE SOD SUCC 62.5 MG/ML (125) 80 MG IVP (13:55)
[2024-06-08 13:56] LABS: C Reactive Protein* 1.7 mg/dL (0.5-1.0)
[2024-06-08] MEDS: diphenhydrAMINE 25 MG in 0.9 % SODIUM CHLORIDE 100 ml 100 ML 402 MG IVPB (14:00)
[2024-06-08 14:24] LABS: Erythrocyte SedimentationRate* 16 mm/hr (2-20)
[2024-06-08] MEDS: TUBING SECONDARY IVPB (14:45)
[2024-06-08] MEDS: TOCILIZUMAB IVPB (14:45)
[2024-06-08] MEDS: [UNRECOGNIZED DRUG - OTHER] IVPB (14:45)
--- NOTE | 2024-07-29 15:15 | URNOTE ---
Actemra (J3262) 200mg/10ml vial (for 13.000NDC units/ 13 doses approved, Date Range: 08/03/2024 to 07/07/2025. Auth #[id number]. Confirmed with [facility] Rep./ nurse Britni that approval is for every 4weeks and pt is getting medication here every 8 weeks, she was aware and PA did not need to be changed.,we do not need to recreate PA as ref#above is approved, see date range/# doses per her plan, if dose increases than a new PA is needed.
[2024-08-03 09:31] VITALS: BP 138/82; PULSE 80; RESP 16; TEMP 36.3; O2SAT 97
[2024-08-03 10:04] LABS: Basophils Absolute Auto 0.02 K/uL (0.00-0.30); Basophils Percent Auto 0.3 % (0.0-3.0); Eosinophils Absolute Auto 0.04 K/uL (0.00-0.50); Eosinophils Percent Auto 0.6 % (0.0-7.0); Hematocrit 37.3 % (33.0-51.0); Hemoglobin* 12.1 gm/dL (12.0-16.0); Immature Granulocytes Abs Auto 0.01 K/uL (0.00-0.30); Immature Granulocytes Pct Auto 0.2 %; Mean Corpuscular HGB Conc 32 gm/dL (32-36); Mean Corpuscular Hemoglobin 30 pg (26-34); Mean Corpuscular Volume 93 fL (80-100); Monocytes Percent Auto 12.9 % (0.0-11.0); Platelet Count* 323 K/uL (140-440); RDW Coefficient of Variation % 13.3 % (11.5-15.5); White Blood Count* 6.27 K/uL (4.50-11.00)
[2024-08-03 10:09] LABS: Slide Review Reflex No
[2024-08-03 10:13] LABS: Albumin* 3.9 g/dL (3.3-5.0)
[2024-08-03 10:16] LABS: Alanine Aminotransferase* 11 U/L (4-35); Alkaline Phosphatase* 33 U/L (40-150); Aspartate Amino Transferase* 23 U/L (12-35); Bilirubin Direct* 0.1 mg/dL (0.0-0.5); Bilirubin Total* 0.8 mg/dL (0.1-1.5); Calcium* 9.1 mg/dL (8.4-10.6); Total Protein* 6.9 g/dL (6.0-8.3)
[2024-08-03 10:19] LABS: C Reactive Protein* 4.8 mg/dL (0.5-1.0)
[2024-08-03] MEDS: diphenhydrAMINE 25 MG in 0.9 % SODIUM CHLORIDE 100 ml 100 ML 402 MG IVPB (10:37)
[2024-08-03] MEDS: METHYLPREDNISOLONE SOD SUCC 62.5 MG/ML (125) 80 MG IVP (10:37)
[2024-08-03 10:49] LABS: Erythrocyte SedimentationRate* 45 mm/hr (2-20)
[2024-08-03 11:08] LABS: Vitamin D 25 Hydroxy* 40 ng/mL (30-80)
[2024-08-03] MEDS: TOCILIZUMAB IVPB (11:14)
[2024-08-03] MEDS: TUBING SECONDARY IVPB (11:14)
[2024-08-03] MEDS: [UNRECOGNIZED DRUG - OTHER] IVPB (11:14)
--- NOTE | 2024-09-14 09:45 | URNOTE ---
Request received for and approved for Actemra (J3262) 200mg/10ml vial (for 2600units= 13 doses (12 remaining) approved, Date Range: 08/03/2024 to 07/07/2025. Auth #[id number]. Confirmed with [facility] RepAddie Gilbert Ref#[id number].
[2024-09-28 09:48] LABS: Basophils Absolute Auto 0.02 K/uL (0.00-0.30); Basophils Percent Auto 0.3 % (0.0-3.0); Eosinophils Absolute Auto 0.09 K/uL (0.00-0.50); Eosinophils Percent Auto 1.2 % (0.0-7.0); Hemoglobin* 13.3 gm/dL (12.0-16.0); Immature Granulocytes Abs Auto 0.02 K/uL (0.00-0.30); Immature Granulocytes Pct Auto 0.3 %; Lymphocytes Percent Auto 14.3 % (20-44); Mean Corpuscular HGB Conc 32 gm/dL (32-36); Mean Corpuscular Hemoglobin 30 pg (26-34); Mean Corpuscular Volume 92 fL (80-100); Monocytes Percent Auto 13.3 % (0.0-11.0); Neutrophils Absolute Auto 5.43 K/uL (1.7-7.0); Neutrophils Percent Auto 70.6 % (42.0-72.0); Platelet Count* 374 K/uL (140-440); RDW Coefficient of Variation % 14.6 % (11.5-15.5); Red Blood Count 4.46 m/uL (4.00-5.20); White Blood Count* 7.68 K/uL (4.50-11.00)
[2024-09-28 09:51] LABS: Slide Review Reflex No
[2024-09-28 10:02] LABS: Albumin* 4.1 g/dL (3.3-5.0)
[2024-09-28 10:04] VITALS: BP 118/70; PULSE 68; RESP 16; TEMP 36.6; O2SAT 97
[2024-09-28 10:05] LABS: Aspartate Amino Transferase* 28 U/L (12-35); Creatinine* 0.9 mg/dL (0.5-1.5); Estimated Glomerular Filt Rate 63 ml/min
[2024-09-28 10:06] LABS: Alanine Aminotransferase* 13 U/L (4-35)
[2024-09-28 10:09] LABS: C Reactive Protein* 1.8 mg/dL (0.5-1.0)
[2024-09-28] MEDS: SODIUM CHLORIDE 0.9 % (FLUSH) 10 ML SYRINGE IVF (10:33)
[2024-09-28] MEDS: 0.9 % SODIUM CHLORIDE 500 ML IV (10:33)
[2024-09-28] MEDS: METHYLPREDNISOLONE SOD SUCC 62.5 MG/ML (125) 80 MG IVP (10:33)
[2024-09-28 10:48] LABS: Erythrocyte SedimentationRate* 20 mm/hr (2-20)
[2024-09-28] MEDS: [UNRECOGNIZED DRUG - OTHER] IVPB (11:17)
[2024-09-28] MEDS: TOCILIZUMAB IVPB (11:17)
[2024-09-28] MEDS: TUBING SECONDARY IVPB (11:17)
[2024-11-25 09:04] VITALS: BP 131/69; PULSE 69; RESP 16; TEMP 36.3; O2SAT 100
--- NOTE | 2024-11-25 09:19 | ONC.NURNOTE ---
Patient here for Actemra infusion. Patient stated she has been sick with cold like symptoms for 10 days. She still is not feeling the greatest. Applications System Analyst called up to [facility] and spoke with one of the nurses up there who recommended to push infusion out 1 week. Patient agreeable to this. Rescheduled for next . Encouraged patient to see her PCP or urgent care if she is not any better. Patient and verbally understood this.
[2024-12-02 09:05] VITALS: BP 151/74; PULSE 85; RESP 15; TEMP 35.9; O2SAT 99
[2024-12-02 09:22] LABS: Basophils Absolute Auto 0.04 K/uL (0.00-0.30); Basophils Percent Auto 0.7 % (0.0-3.0); Eosinophils Absolute Auto 0.04 K/uL (0.00-0.50); Eosinophils Percent Auto 0.7 % (0.0-7.0); Hematocrit 37.5 % (33.0-51.0); Hemoglobin* 12.3 gm/dL (12.0-16.0); Lymphocytes Percent Auto 16.2 % (20-44); Mean Corpuscular HGB Conc 33 gm/dL (32-36); Mean Corpuscular Hemoglobin 30 pg (26-34); Mean Corpuscular Volume 93 fL (80-100); Monocytes Percent Auto 7.5 % (0.0-11.0); Neutrophils Percent Auto 74.9 % (42.0-72.0); Platelet Count* 272 K/uL (140-440); RDW Coefficient of Variation % 14.7 % (11.5-15.5); Red Blood Count 4.05 m/uL (4.00-5.20); Slide Review Reflex No; White Blood Count* 5.97 K/uL (4.50-11.00)
[2024-12-02 09:36] LABS: Albumin* 3.9 g/dL (3.3-5.0)
[2024-12-02 09:39] LABS: Alanine Aminotransferase* 18 U/L (4-35); Aspartate Amino Transferase* 27 U/L (12-35); Creatinine* 0.7 mg/dL (0.5-1.5); Estimated Glomerular Filt Rate 85 ml/min
[2024-12-02] MEDS: 0.9 % SODIUM CHLORIDE 500 ML IV (09:43)
[2024-12-02] MEDS: SODIUM CHLORIDE 0.9 % (FLUSH) 10 ML SYRINGE IVF (09:43)
[2024-12-02] MEDS: METHYLPREDNISOLONE SOD SUCC 62.5 MG/ML (125) 80 MG IVP (09:44)
[2024-12-02 10:04] LABS: C Reactive Protein* 2.6 mg/dL (0.5-1.0)
[2024-12-02] MEDS: diphenhydrAMINE 25 MG in 0.9 % SODIUM CHLORIDE 100 ml 100 ML 402 MG IVPB (10:34)
[2024-12-02 11:11] LABS: Erythrocyte SedimentationRate* 28 mm/hr (2-20)
== END 2024-12-05 23:59 | disposition home or self-care (01) ==
LOC: CCIC 09:00
PROVIDERS: PCP Family Medicine; Referring Provider Family Medicine; Visit Provider Clinical Nurse Specialist
DX: M06.00 Rheumatoid arthritis without rheumatoid factor, unspecified site (principal); E03.9 Hypothyroidism, unspecified; I10 Essential (primary) hypertension; Z51.81 Encounter for therapeutic drug level monitoring; E55.9 Vitamin D deficiency, unspecified
CPT/HCPCS: 36415; 80076; 82040; 82306; 82310; 82565; 84450; 84460; 85025; 85651; 86140; 96365; 96367; 96375; 96376; J1200; J2919; J3262; J7030

== ENCOUNTER 2025-05-13 09:45 | Outpatient (RCR) | payer MEDICARE, SELFPAY | END 2025-07-15 17:14 | disposition home or self-care (01) | PROVIDERS: PCP Family Medicine; Visit Provider Family Medicine | DX: M25.511 Pain in right shoulder (principal); Z51.89 Encounter for other specified aftercare | CPT/HCPCS: 97110; 97140; 97162 ==

== ENCOUNTER 2025-05-19 09:00 | Outpatient (RCR) | payer MEDICARE, SELFPAY ==
[2025-01-27 09:46] VITALS: BP 149/71; PULSE 72; RESP 18; TEMP 36.2; O2SAT 97
[2025-01-27] MEDS: METHYLPREDNISOLONE SOD SUCC 62.5 MG/ML (125) 80 MG IVP (10:17)
[2025-01-27] MEDS: diphenhydrAMINE 25 MG in 0.9 % SODIUM CHLORIDE 100 ml 100 ML 402 MG IVPB (10:21)
[2025-01-27] MEDS: [UNRECOGNIZED DRUG - OTHER] IVPB (11:10)
[2025-01-27] MEDS: TOCILIZUMAB IVPB (11:10)
[2025-01-27] MEDS: TUBING SECONDARY IVPB (11:10)
--- NOTE | 2025-03-24 12:31 | ONC.NURNOTE ---
Spoke with patient at [phone] as patients appointment was at 9am. She thought it was at 11am. She and her were going to try and get here earlier than 11am, but that it would take them about 40minutes. Principal Programmer reassured her to take her time. Left message at [phone] on patients phone to see why they didn't show.
--- NOTE | 2025-05-10 14:02 | ONC.NURNOTE ---
Diagnosis: rheumatoid arthritis, M06.00
[2025-05-19 08:57] VITALS: BP 161/73; PULSE 76; RESP 16; TEMP 36.2; O2SAT 98
[2025-05-19] MEDS: TUBING PRIMARY IVPB (09:35)
[2025-05-19] MEDS: [UNRECOGNIZED DRUG - OTHER] IVPB (09:35)
[2025-05-19] MEDS: IN LINE IVPB (09:35)
[2025-05-19] MEDS: MICRON FILTER SET IVPB (09:35)
[2025-05-19] MEDS: GOLIMUMAB IVPB (09:35)
--- NOTE | 2025-05-20 09:16 | ONC.NURNOTE ---
Addendum entered by Abril Jean RN 05/25/25 12:22: Received a call from Tiffany at [facility] that patient needs to do he July infusion in their clinic. RN updated Cassia that they will not give us the order and she will need to go there for her infusion. She was appreciative of us trying but is understanding. Original Note: Patient in clinic yesterday for her 1st Simponi Aria with the [facility]. She has received 2 doses already at [facility]. While patient was here patient updated RN that she is wanting to switch Pv Design Engineer's as she is unhappy at [facility]. She would like to do her 07/14 treatment here at the [facility] instead of going to [place] as she has a consult with a new MD in [place] that same date. Her current orders are for every other infusion. RN placed a call to [facility] to see if we could get a one time order to do her next infusion here at the [facility] instead of there. Had to leave message with them. RN will created a workload item to check in on this next week. Patient scheduled for 07/14 at 1 pm. Will call patient if we are unable to obtain a 1 time order. Patient agreeable to the plan.
== END 2025-07-26 23:59 | disposition home or self-care (01) ==
LOC: CCIC 09:00
PROVIDERS: PCP Family Medicine; Referring Provider Family Medicine; Visit Provider Clinical Nurse Specialist
DX: M06.00 Rheumatoid arthritis without rheumatoid factor, unspecified site (principal)
CPT/HCPCS: 96365; 96367; 96375; J1200; J1602; J2919; J3262

== ENCOUNTER 2025-07-10 09:05 | Outpatient (CLI) | payer MEDICARE, SELFPAY ==
[2025-07-10 09:57] LABS: SARS PCR* POSITIVE SARS-CoV-2 (Negative)
== END 2025-07-10 09:06 | disposition home or self-care (01) ==
PROVIDERS: PCP Family Medicine; Visit Provider Family Medicine
DX: U07.1 COVID-19 (principal)
CPT/HCPCS: 87635